=== PATIENT | female | born 1990 | race Caucasian/White ===

== ENCOUNTER 2023-08-15 12:58 | Outpatient (AMB) | payer OTHER, SELFPAY ==
--- NOTE | 2023-08-15 13:14 | MHC.PC.OV ---
Vital Signs 08/15/23 13:20 Height 5 ft 0.83 in Weight 155 lb BMI 29.4 BP 108/76 Blood Pressure Location Rt brachial Position Sitting Respiration 14 Pulse 85 Pulse Source Palpation Temp 98.5 F Temp Source Oral Pulse Oximetry (%) 99 Oxygen Delivery Method Room Air Intake Visit Reasons: [employer] Annual PE Req. Intake Note: New patient visit Is last menstrual period known: No Allergies No Known Allergies Allergy (Verified 08/15/23 13:15) Medication List - Last Reconciled 08/15/23 by Brenda Garcia MD atomoxetine 100 mg PO QAM dextroamphetamine-amphetamine 10 mg 1 tab PO BID dextroamphetamine-amphetamine 20 mg ER caps PO lorazepam mg PO ondansetron mg PO sumatriptan succinate take 1 tab at onset of headache; if no relief may repeat 1 tab after at least 2 hrs; max = 4 tabs/24 hr PO tirzepatide (Mounjaro) 7.5 mg subcut QWEEK topiramate (Topamax) 25 mg PO DAILY 30 days venlafaxine ER 225 mg PO DAILY Tobacco use date assessed: 08/15/23 Dental Screening Dental Screen Date: 08/15/23 Did you have a dental visit in the last 12 months?: No Did you have a dental problem in the last 6 months where you did not have access to dental care?: No Was dental information given to patient?: No (Patient will find one on her own) HPI HPI Comments History of Present Illness Details The patient is a 32 year old female with a past medical history of headaches, anxiety, depression, ADD presenting for follow up Headaches: Did not start the med. Still consisdering BH: On atomoxetine, adderall, effexor Continues GLP for weight loss PFSH Medical History (Updated 08/20/23 @ 11:37 by Brenda Garcia MD) Migraines Surgical History (Updated 08/15/23 @ 13:50 by Nishi Peraza CMA) Hx of appendectomy Family History (Updated 08/15/23 @ 13:52 by Nishi Peraza CMA) Paternal Grandmother HTN (hypertension) Hypercholesterinemic xanthomatosis Diabetes Father HTN (hypertension) Hypercholesterinemic xanthomatosis Diabetes Paternal Grandfather Diabetes Mother Thyroid disorder Maternal Grandmother Breast cancer Social History (Updated 08/15/23 @ 13:17 by DARSHANA Gutiérrez Housing: House Patient Tobacco Use Status: Never used Tobacco e-Cigarette/Vaping Use: Never Used Second Hand Smoke Exposure: No Use of substances other than those prescribed or required for medical reasons: No service: Yes Current occupational status: employed Current occupation: pharmacist Current occupational exposures/hazards: No Cognitive needs: No Hearing needs: No Vision needs: No Questionnaire PHQ-9 Over the last 2 weeks, how often have you been bothered by any of the following problems? 1. Little interest or pleasure in doing things: not at all 2. Feeling down, depressed, or hopeless: not at all 3. Trouble falling or staying asleep, or sleeping too much: more than half the days 4. Feeling tired or having little energy: more than half the days 5. Poor appetite or overeating: several days 6. Feeling bad about yourself - or that you are a failure or have let yourself or your family down: not at all 7. Trouble concentrating on things, such as reading the newspaper or watching television: not at all 8. Moving or speaking so slowly that other people could have noticed. Or the opposite - being so fidgety or restless that you have been moving around a lot more than usual: not at all 9. Thoughts that you would be better off or of hurting yourself in some way: not at all Total score: 5 Depression Screening Interpretation: Positive Depression Screening Follow-up: Existing condition Depression Screening Done: Yes 15269 - PHQ-9 Billing: Yes Source: Developed by Drs. Demarco Penaloza, Maria Teresa Rodriguez, Navid Araujo and colleagues, with an educational duyen from [employer]. Thrive Questionnaire Date Thrive assessed: 08/15/23 I am a: Patient What is your living situation today?: I have a steady place to live Within the past 12 months, did the food you bought not last and you didn't have the money to get more?: Never true Within the past 12 months, did you worry whether your food would run out before you got money to buy more?: Never true Do you have trouble paying for medicines?: No Do you have trouble getting transportation to medical appointments?: No Do you have trouble paying your heating and electricity bill?: No Do you have trouble taking care of your child, family member or friend?: No Do you have trouble with day-to-day activities such as bathing, preparing meals, shopping, managing finances, etc.?: No Are you currently unemployed and looking for a job?: No Are you interested in more education?: No Please select the resources that you would like help with: None Currently or been in a relationship where the following occur: no concerns reported THRIVE Score: 0 AUDIT C Alcohol Use Questionnaire (AUDIT-C) 1. How often do you have a drink containing alcohol?: Never 3. How often do you have six or more drinks on one occasion?: Never Total Score: 0 CATALINA-7 AMB Questionnaire CATALINA-7 Date CATALINA - 7 assessed: 08/15/23 Feeling nervous, anxious, or on edge: 1 = Several days Not being able to stop or control worryin = Several days Worrying too much about different things: 1 = Several days Trouble relaxin = Several days Being so restless that it is hard to sit still: 1 = Several days Becoming easily annoyed or irritable: 0 = Not at all Feeling afraid as if something awful might happen: 0 = Not at all Total CATALINA-7 score (0-4 normal; 5-9 mild; 10-14 moderate; 15-21 severe): 5 Source: Developed by Drs. Demarco Penaloza, Maria Teresa Rodriguez, Navid Araujo and colleagues, with an educational duyen from [employer]. CATALINA-7 Assessment Billing CATALINA-7 Assessment Tool: CATALINA-7 Assessment 53761 Review of Systems Const Details: see HPI Physical exam (Primary Care) Vital Signs: Last Vital Signs Temp 98.5 F 08/15/23 13:20 Pulse 85 08/15/23 13:20 Resp 14 08/15/23 13:20 BP 108/76 08/15/23 13:20 Pulse Ox 99 08/15/23 13:20 Oxygen Delivery Method Room Air 08/15/23 13:20 PHYSICAL EXAM: GENERAL: Alert and oriented x 3. NAD EYES: EOMI. Anicteric. HENT: Moist mucous membranes. No scleral icterus. No cervical lymphadenopathy. LUNGS: Clear to auscultation bilaterally. CARDIOVASCULAR: Regular rate and rhythm. No murmur. No JVD. ABDOMEN: Soft, non-tender +bs EXTREMITIES: No edema. Non-tender. SKIN: No rashes or lesions. Warm. NEUROLOGIC: No focal neurological deficits. CN II-XII grossly intact PSYCHIATRIC: Cooperative. Appropriate mood and affect BMI result Body Mass Index 29.4 Tobacco/Smoking Status: Tobacco use Status Tobacco use date assessed 08/15/23 08/15/23 13:22 Patient Tobacco Use Status Never used Tobacco 08/15/23 13:22 e-Cigarette/Vaping Use Never Used 08/15/23 13:22 PHQ-9: PHQ-9 Score PHQ-9: Total score 5 08/15/23 13:48 Depression Screening Interpretation: Positive Depression Screening Follow-up: Existing condition Thrive Assessment: Date of Thrive Assessment Date Thrive assessed 08/15/23 08/15/23 13:48 Currently or been in a relationship where the following occur: no concerns reported Const Other: ROS CONSTITUTIONAL: Denies weight loss, fever and chills. HEENT: Denies changes in vision and hearing. RESPIRATORY: Denies SOB and cough. CV: Denies palpitations and CP GI: Denies abdominal pain, nausea, vomiting and diarrhea. : Denies dysuria and urinary frequency. MSK: Denies new myalgia and joint pain. SKIN: Denies rash and pruritus. NEUROLOGICAL: Denies headache PSYCHIATRIC: Denies recent changes in mood. Assessment and Plan Assessment & Plan (1) ADD (attention deficit disorder): Comment: stable on medications. psych provider Code(s): F98.8 - Other specified behavioral and emotional disorders with onset usually occurring in childhood and adolescence Qualifiers: Hyperactivity presence: absent Qualified Code(s): F98.8 - Other specified behavioral and emotional disorders with onset usually occurring in childhood and adolescence (2) Anxiety: Code(s): F41.9 - Anxiety disorder, unspecified (3) Depression: Code(s): F32.A - Depression, unspecified Qualifiers: Active/Remission status: in remission of unspecified degree Depression Type: major depressive disorder Major depression recurrence: recurrent Qualified Code(s): F33.40 - Major depressive disorder, recurrent, in remission, unspecified (4) Screening, deficiency anemia, iron: Comment: labs ordered Code(s): Z13.0 - Encounter for screening for diseases of the blood and blood-forming organs and certain disorders involving the immune mechanism (5) Impaired fasting glucose: Code(s): R73.01 - Impaired fasting glucose (6) Screening for hyperlipidemia: Code(s): Z13.220 - Encounter for screening for lipoid disorders Orders: Orders Complete Blood Count Auto Diff 08/15/23 F33.40 - Major depressive disorder, recurrent, in remission, unspecified, F41.9 - Anxiety disorder, unspecified, F98.8 - Other specified behavioral and emotional disorders with onset usually occurring in childhood and adolescence, R73.01 - Impaired fasting glucose, Z13.0 - Encounter for screening for diseases of the blood and blood-forming organs and certain disorders involving the immune mechanism, Z13.220 - Encounter for screening for lipoid disorders Comprehensive Met. Panel 08/15/23 F33.40 - Major depressive disorder, recurrent, in remission, unspecified, F41.9 - Anxiety disorder, unspecified, F98.8 - Other specified behavioral and emotional disorders with onset usually occurring in childhood and adolescence, R73.01 - Impaired fasting glucose, Z13.0 - Encounter for screening for diseases of the blood and blood-forming organs and certain disorders involving the immune mechanism, Z13.220 - Encounter for screening for lipoid disorders Hemoglobin A1c 08/15/23 F33.40 - Major depressive disorder, recurrent, in remission, unspecified, F41.9 - Anxiety disorder, unspecified, F98.8 - Other specified behavioral and emotional disorders with onset usually occurring in childhood and adolescence, R73.01 - Impaired fasting glucose, Z13.0 - Encounter for screening for diseases of the blood and blood-forming organs and certain disorders involving the immune mechanism, Z13.220 - Encounter for screening for lipoid disorders Lipid Panel 08/15/23 F33.40 - Major depressive disorder, recurrent, in remission, unspecified, F41.9 - Anxiety disorder, unspecified, F98.8 - Other specified behavioral and emotional disorders with onset usually occurring in childhood and adolescence, R73.01 - Impaired fasting glucose, Z13.0 - Encounter for screening for diseases of the blood and blood-forming organs and certain disorders involving the immune mechanism, Z13.220 - Encounter for screening for lipoid disorders TSH reflex Free T4 08/15/23 F33.40 - Major depressive disorder, recurrent, in remission, unspecified, F41.9 - Anxiety disorder, unspecified, F98.8 - Other specified behavioral and emotional disorders with onset usually occurring in childhood and adolescence, R73.01 - Impaired fasting glucose, Z13.0 - Encounter for screening for diseases of the blood and blood-forming organs and certain disorders involving the immune mechanism, Z13.220 - Encounter for screening for lipoid disorders Medications: New sumatriptan succinate take 1 tab at onset of headache; if no relief may repeat 1 tab after at least 2 hrs; max = 4 tabs/24 hr PO 18 tabs 3RF topiramate (Topamax) 25 mg PO DAILY 30 tabs 0RF 30 days Coding Level of Care Code Tele Est Pt Level 4 (97798) Complex EM visit Add On G2211 Diagnoses Attention deficit disorder (ADD) without hyperactivity F98.8 Hyperactivity presence: absent Anxiety F41.9 Recurrent major depressive disorder, in remission F33.40 Active/Remission status: in remission of unspecified degree Depression Type: major depressive disorder Major depression recurrence: recurrent Screening, deficiency anemia, iron Z13.0 Impaired fasting glucose R73.01 Screening for hyperlipidemia Z13.220 Additional Codes CATALINA-7 Assessment Billing - CATALINA-7 Assessment Tool: CATALINA-7 Assessment 52544 ([id number])
[2023-08-15 13:20] VITALS: BP 108/76; PULSE 85; RESP 14; TEMP 36.9; O2SAT 99; BMI 29.4
== END 2023-08-15 13:52 | disposition home or self-care (01) ==
PROVIDERS: PCP Internal Medicine; Visit Provider Internal Medicine
DX: R73.01 Impaired fasting glucose (principal); F98.8 Other specified behavioral and emotional disorders with onset usually occurring in childhood and adolescence; F41.9 Anxiety disorder, unspecified; F33.40 Major depressive disorder, recurrent, in remission, unspecified; Z13.0 Encounter for screening for diseases of the blood and blood-forming organs and certain disorders involving the immune mechanism; Z13.220 Encounter for screening for lipoid disorders
CPT/HCPCS: 99214; G2211

== ENCOUNTER 2023-09-08 08:02 | Outpatient (REF) | payer OTHER, SELFPAY ==
[2023-09-08 11:23] LABS: MANUAL DIFF FLAG NO
[2023-09-08 11:31] LABS: Basophils Percent Auto 0.6 % (0-2); Eosinophils Absolute Auto 0.1 X10*3/uL (0.0-0.4); Eosinophils Percent Auto 2.2 % (0-4); Hematocrit 41.9 % (37.0-47.0); Hemoglobin 13.2 g/dl (12.0-16.0); Imm Gran Abs Auto 0.01 X10*3/uL (0.00-0.03); Imm Gran Pct Auto 0.2 % (0.0-0.4); Lymphocytes Absolute Auto 2.4 X10*3/uL (1.2-4.9); Lymphocytes Percent Auto 44.5 % (20-40); Mean Corpuscular HGB Conc 31.5 g/dl (31.0-35.0); Mean Corpuscular Hemoglobin 27.3 pg (27.0-33.0); Mean Corpuscular Volume 86.7 fL (80.0-98.0); Mean Platelet Volume 10.5 fL (9.4-12.3); Monocytes Absolute Auto 0.4 X10*3/uL (0.1-1.2); Monocytes Percent Auto 7.1 % (2-11); Neutrophils Absolute Auto 2.4 x10*3/uL (2.0-8.3); Neutrophils Percent Auto 45.4 % (45-73); Platelet Count 302 X10*3/uL (160-400); Red Blood Count 4.83 X10*6/uL (4.20-5.50); Red Cell Distribution Width 13.1 % (11.0-16.0); White Blood Count 5.4 X10*3/uL (4.8-10.8)
[2023-09-08 11:53] LABS: Alanine Aminotransferase 220 U/L (0-31); Albumin Level 4.3 g/dL (3.5-5.0); Alkaline Phosphatase 155 U/L (39-117); Anion Gap 12 (12-20); Aspartate Amino Transferase 110 U/L (5-31); Bilirubin Total 0.2 mg/dL (0.0-1.0); Blood Urea Nitrogen 8 mg/dL (9-16); Calcium 9.1 mg/dL (8.4-10.2); Carbon Dioxide 27 mmol/L (22-29); Chloride 109 mmol/L (96-108); Cholesterol 211 mg/dL (<200); Estimated Glomerular Filt Rate > 60; Glucose Random 86 mg/dL (60-115); HDL Cholesterol 73 mg/dL (>40); LDL Cholesterol Calculated 121 mg/dL (<100); Potassium 4.1 mmol/L (3.3-5.1); Sodium 144 mmol/L (135-145); Total Protein 7.2 g/dL (6.5-8.0); Triglycerides 86 mg/dL (<150)
[2023-09-08 12:04] LABS: Estimated Average Glucose 97 mg/dL
[2023-09-08 12:10] LABS: TSH reflex Free T4 1.17 uIU/mL (0.32-4.0)
== END 2023-09-08 08:03 | disposition home or self-care (01) ==
LOC: HO.WFDLDS 08:02
PROVIDERS: Visit Provider Internal Medicine
DX: F33.40 Major depressive disorder, recurrent, in remission, unspecified (principal); F41.9 Anxiety disorder, unspecified; F98.8 Other specified behavioral and emotional disorders with onset usually occurring in childhood and adolescence; Z13.0 Encounter for screening for diseases of the blood and blood-forming organs and certain disorders involving the immune mechanism; R73.01 Impaired fasting glucose; Z13.220 Encounter for screening for lipoid disorders
CPT/HCPCS: 36415; 80053; 80061; 83036; 84443; 85025

== ENCOUNTER 2023-09-08 08:58 | Outpatient (REF) | payer OTHER, SELFPAY ==
--- NOTE | ~2023-09-08 | XR_ITS ---
EXAMINATION: XR CERVICAL SPINE, LUMBAR SPINE CLINICAL INFORMATION: Pain in neck as well as lower back. Patient states pain in lower back is from a childhood injury. COMPARISON: None available. TECHNIQUE: 3 views of the cervical spine. 3 views of the lumbar spine. FINDINGS: Cervical Spine: Minimal spondylosis in the lower cervical spine. Cervical disc space heights and alignment preserved. 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 IUD in the pelvis. Lumbar vertebral body heights are preserved. Minimal degenerative changes in the lumbar spine. Lumbar disc space heights maintained. XR/XR lumbar spine 2-3V IMPRESSION: 1. Minimal spondylosis in the lower cervical spine. 2. Facet arthritis in the lower lumbar spine.
--- NOTE | ~2023-09-08 | XR_ITS ---
EXAMINATION: XR CERVICAL SPINE, LUMBAR SPINE CLINICAL INFORMATION: Pain in neck as well as lower back. Patient states pain in lower back is from a childhood injury. COMPARISON: None available. TECHNIQUE: 3 views of the cervical spine. 3 views of the lumbar spine. FINDINGS: Cervical Spine: Minimal spondylosis in the lower cervical spine. Cervical disc space heights and alignment preserved. 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 IUD in the pelvis. Lumbar vertebral body heights are preserved. Minimal degenerative changes in the lumbar spine. Lumbar disc space heights maintained. XR/XR cervical spine 2V IMPRESSION: 1. Minimal spondylosis in the lower cervical spine. 2. Facet arthritis in the lower lumbar spine.
== END 2023-09-08 08:59 | disposition home or self-care (01) ==
LOC: HO.XRAY 08:58
PROVIDERS: PCP Internal Medicine; Visit Provider Internal Medicine
DX: M54.2 Cervicalgia (principal); M54.50 Low back pain, unspecified
CPT/HCPCS: 72040; 72100

== ENCOUNTER 2023-09-29 09:21 | Outpatient (REF) | payer OTHER, SELFPAY ==
--- NOTE | ~2023-09-29 | US_ITS ---
EXAMINATION: US ABDOMEN LIMITED CLINICAL INFORMATION: Other specified abnormal findings of blood chemistry. COMPARISON: None available. TECHNIQUE: Real-time imaging of the right upper quadrant abdominal viscera. FINDINGS: PANCREAS: Normal. LIVER: The liver is normal in size. The liver contour is normal. Mildly increased hepatic echogenicity which can be seen in the setting of hepatic steatosis or underlying liver disease. No focal hepatic lesion. There is no intrahepatic biliary duct dilatation seen. GALLBLADDER: Normal. The gallbladder is physiologically distended without evidence of stones, sludge, polyps, wall thickening or pericholecystic fluid. COMMON BILE DUCT: Normal in caliber measuring 0.3 cm in diameter. RIGHT KIDNEY: Normal. No hydronephrosis. No renal calculi or focal parenchymal lesions. The kidney measures 10.7 cm in maximum dimension. FREE FLUID: None. US/US abdomen limited IMPRESSION: Mildly increased hepatic echogenicity which can be seen in the setting of hepatic steatosis or underlying liver disease.
== END 2023-09-29 09:22 | disposition home or self-care (01) ==
LOC: HO.HMGCX 09:21
PROVIDERS: PCP Internal Medicine; Visit Provider Internal Medicine
DX: R79.89 Other specified abnormal findings of blood chemistry (principal)
CPT/HCPCS: 76705

== ENCOUNTER 2023-11-25 14:34 | Outpatient (REF) | payer OTHER, SELFPAY ==
--- NOTE | ~2023-11-25 | MR_ITS ---
EXAMINATION: MR LUMBAR SPINE WITHOUT CONTRAST CLINICAL INFORMATION: Low back pain COMPARISON: Lumbar radiographs 09/08/2023 TECHNIQUE: MRI of the lumbar spine was obtained using routine sequences without the administration of intravenous contrast. FINDINGS: This examination assumes the presence of 5 lumbar type vertebral bodies. For the purposes of this examination, the L5-S1 intervertebral disc space is visualized on axial series 9 image 28. There are likely hypoplastic T12 ribs. The normal lumbar lordosis is preserved. No significant spondylolisthesis. Lumbar vertebral body heights are maintained. Mildly diminished T1 marrow signal may be related to underlying anemia or red marrow. The conus medullaris and cauda equina nerve roots are unremarkable; the conus terminates at the level of L1. L1-L2: Mild facet arthropathy. The spinal canal and neural foramen are patent. L2-L3: Mild facet arthropathy. The spinal canal and neural foramen are patent. L3-L4: Central disc protrusion indents the ventral thecal sac and narrows the right lateral recess. The central canal is otherwise patent. Mild facet degeneration. The neural foramen are not significantly narrowed. L4-L5: Disc bulge with central annular fissure. Narrowing of the lateral recesses. The central canal is otherwise patent. Facet arthropathy. The neural foramen are not significant narrowed. L5-S1: Facet arthropathy. The spinal canal and neural foramen are patent. Partially visualized small volume pelvic free fluid. 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 Numbering system for this examination as described above. Mild degenerative changes of the lumbar spine as described above. No high-grade spinal canal or neural foraminal stenosis. Electronically signed by: Phu Barrios MD 12/09/2023 01:15 AM EDT
--- NOTE | ~2023-11-25 | MR_ITS ---
EXAMINATION: MR CERVICAL SPINE WITHOUT CONTRAST CLINICAL INFORMATION: Cervicalgia, cervical migraines COMPARISON: Cervical radiographs 09/08/2023 TECHNIQUE: MRI of the cervical spine was obtained using routine sequences without contrast. FINDINGS: Straightening of the normal cervical lordosis. No significant spondylolisthesis. Cervical vertebral body heights are maintained. No expansile or destructive osseous lesion. The cervical spinal cord is normal in signal. C2-C3: No significant spinal canal or neural foraminal stenosis. C3-C4: No significant spinal canal or neural foraminal stenosis. C4-C5: Asymmetric left-sided facet arthropathy with mild narrowing of the left neural foramen. The spinal canal and right neural foramen are patent. C5-C6: No significant spinal canal or neural foraminal stenosis. C6-C7: No significant spinal canal or neural foraminal stenosis. C7-T1: No significant spinal canal or neural foraminal stenosis. Partially visualized trace right mastoid fluid. MR/MR cervical spine wo con IMPRESSION: Mild left neural foraminal stenosis at C4-C5. Otherwise, no significant spinal canal or neural foraminal stenosis in the cervical spine. Electronically signed by: Phu Barrios MD 12/09/2023 01:04 AM EDT
== END 2023-11-25 14:35 | disposition home or self-care (01) ==
LOC: HO.MRI 14:34
PROVIDERS: PCP Internal Medicine; Visit Provider Internal Medicine
DX: M54.2 Cervicalgia (principal); R51.9 Headache, unspecified; M54.50 Low back pain, unspecified
CPT/HCPCS: 72141; 72148

== ENCOUNTER 2024-01-09 11:20 | Outpatient (AMB) | payer OTHER, SELFPAY ==
--- NOTE | 2024-01-09 11:38 | MHC.PC.OV ---
Vital Signs 01/09/24 11:40 Height 5 ft 0.83 in Weight 157 lb 4 oz BMI 29.9 BP 92/64 Blood Pressure Location Rt brachial Position Sitting Pulse 86 Pulse Source Pulse Oximeter Pulse Oximetry (%) 99 Oxygen Delivery Method Room Air Intake Visit Reasons: knee pain Intake Note: Bilateral knee pain. Wants to discuss MRI results. 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 Stands a lot but also hurting sitting and laying down. worse over the past few months. also with ongoing neck and low back pain. MRI with mild arthritic changes of low back and neck. She feels creaking. No h/o trauma. Headaches: Taking sumatriptan as needed. BH: On atomoxetine, adderall, effexor ROS see HPI PHYSICAL EXAM: GENERAL: Alert and oriented x 3. NAD EYES: EOMI. Anicteric. HENT: Moist mucous membranes. No scleral icterus. No cervical lymphadenopathy. LUNGS: Clear to auscultation bilaterally. CARDIOVASCULAR: Regular rate and rhythm. No murmur. No JVD. ABDOMEN: Soft, non-tender +bs EXTREMITIES: No edema. Non-tender. MSK: Normal appearance bilateral knees, mild crepitus SKIN: No rashes or lesions. Warm. NEUROLOGIC: No focal neurological deficits. CN II-XII grossly intact PSYCHIATRIC: Cooperative. Appropriate mood and affect [facility] Medical History Migraines Surgical History Hx of appendectomy Family History Paternal Grandmother HTN (hypertension) Hypercholesterinemic xanthomatosis Diabetes Father HTN (hypertension) Hypercholesterinemic xanthomatosis Diabetes Paternal Grandfather Diabetes Mother Thyroid disorder Maternal Grandmother Breast cancer Social History Housing: House Patient Tobacco Use Status: Never used Tobacco e-Cigarette/Vaping Use: Never Used Second Hand Smoke Exposure: No service: Yes Current occupational status: employed Current occupation: pharmacist Current occupational exposures/hazards: No Cognitive needs: No Hearing needs: No Vision needs: No Questionnaire PHQ-9 Over the last 2 weeks, how often have you been bothered by any of the following problems? 1. Little interest or pleasure in doing things: not at all 2. Feeling down, depressed, or hopeless: not at all 3. Trouble falling or staying asleep, or sleeping too much: not at all 4. Feeling tired or having little energy: not at all 5. Poor appetite or overeating: not at all 6. Feeling bad about yourself - or that you are a failure or have let yourself or your family down: not at all 7. Trouble concentrating on things, such as reading the newspaper or watching television: not at all 8. Moving or speaking so slowly that other people could have noticed. Or the opposite - being so fidgety or restless that you have been moving around a lot more than usual: not at all 9. Thoughts that you would be better off or of hurting yourself in some way: not at all Total score: 0 Source: Developed by Drs. Demarco Penaloza, Maria Teresa Rodriguez, Navid Araujo and colleagues, with an educational duyen from [employer]. Thrive Questionnaire Date Thrive assessed: 01/06/24 I am a: Patient What is your living situation today?: I have a steady place to live Within the past 12 months, did the food you bought not last and you didn't have the money to get more?: Never true Within the past 12 months, did you worry whether your food would run out before you got money to buy more?: Never true Do you have trouble paying for medicines?: No Do you have trouble getting transportation to medical appointments?: No Do you have trouble paying your heating and electricity bill?: No Do you have trouble taking care of your child, family member or friend?: No Do you have trouble with day-to-day activities such as bathing, preparing meals, shopping, managing finances, etc.?: No Are you currently unemployed and looking for a job?: No Are you interested in more education?: No Please select the resources that you would like help with: None Currently or been in a relationship where the following occur: No concerns reported THRIVE Score: 0 AUDIT C Alcohol Use Questionnaire (AUDIT-C) 1. How often do you have a drink containing alcohol?: Never 3. How often do you have six or more drinks on one occasion?: Never Total Score: 0 CATALINA-7 AMB Questionnaire CATALINA-7 Date CATALINA - 7 assessed: 08/15/23 Feeling nervous, anxious, or on edge: 0 = Not at all Not being able to stop or control worryin = Not at all Worrying too much about different things: 0 = Not at all Trouble relaxin = Several days Being so restless that it is hard to sit still: 1 = Several days Becoming easily annoyed or irritable: 1 = Several days Feeling afraid as if something awful might happen: 1 = Several days Total CATALINA-7 score (0-4 normal; 5-9 mild; 10-14 moderate; 15-21 severe): 4 Source: Developed by Drs. Demarco Penaloza, Maria Teresa Rodriguez, Navid Araujo and colleagues, with an educational duyen from [employer]. Physical exam (Primary Care) Vital Signs: Last Vital Signs Pulse 86 01/09/24 11:40 BP 92/64 01/09/24 11:40 Pulse Ox 99 01/09/24 11:40 Oxygen Delivery Method Room Air 01/09/24 11:40 BMI result Body Mass Index 29.9 Tobacco/Smoking Status: Tobacco use Status Tobacco use date assessed 08/15/23 01/09/24 11:38 Patient Tobacco Use Status Never used Tobacco 01/09/24 11:38 e-Cigarette/Vaping Use Never Used 01/09/24 11:38 PHQ-9: PHQ-9 Score PHQ-9: Total score 0 01/09/24 11:38 Thrive Assessment: Date of Thrive Assessment Date Thrive assessed 01/06/24 01/09/24 11:38 Currently or been in a relationship where the following occur: No concerns reported Coding Level of Care Code Est Pt Level 4 (03936) Diagnoses Myalgia M79.10 Chronic pain of right knee M25.561; G89.29 Chronicity: chronic Chronic pain of left knee M25.562; G89.29 Chronicity: chronic Assessment & Plan Assessment & Plan (1) Myalgia: Code(s): M79.10 - Myalgia, unspecified site Category: Medical Plan: check xrays labs. Discussed likely fibromyalgia. (2) Right knee pain: Code(s): M25.561 - Pain in right knee Category: Medical Qualifiers: Chronicity: chronic Qualified Code(s): M25.561 - Pain in right knee; G89.29 - Other chronic pain Plan: xray ordered recommend voltaren (3) Left knee pain: Code(s): M25.562 - Pain in left knee Category: Medical Qualifiers: Chronicity: chronic Qualified Code(s): M25.562 - Pain in left knee; G89.29 - Other chronic pain Plan: xray ordered recommend voltaren Orders: Orders XR knee RT 3V Today M25.561 - Pain in right knee, M25.562 - Pain in left knee, M79.10 - Myalgia, unspecified site Lyme IgG/IgM w/reflex to WB Today M25.561 - Pain in right knee, M25.562 - Pain in left knee, M79.10 - Myalgia, unspecified site XR knee LT 3V Today M25.561 - Pain in right knee, M25.562 - Pain in left knee, M79.10 - Myalgia, unspecified site Erythrocyte Sedimentation Rate Today M25.561 - Pain in right knee, M25.562 - Pain in left knee, M79.10 - Myalgia, unspecified site Rheumatoid Factor Today M25.561 - Pain in right knee, M25.562 - Pain in left knee, M79.10 - Myalgia, unspecified site Referrals Genetics Referral Z80.3 - Family history of malignant neoplasm of breast
[2024-01-09 11:40] VITALS: BP 92/64; PULSE 86; O2SAT 99; BMI 29.9
== END 2024-01-09 12:09 | disposition home or self-care (01) ==
PROVIDERS: PCP Internal Medicine; Visit Provider Internal Medicine
DX: M79.10 Myalgia, unspecified site (principal); M25.561 Pain in right knee; G89.29 Other chronic pain; M25.562 Pain in left knee

== ENCOUNTER → 2024-01-09 11:20 | Outpatient (BNVA) | payer OTHER, SELFPAY | PROVIDERS: PCP Internal Medicine; Visit Provider Internal Medicine ==

== ENCOUNTER 2024-01-09 12:24 | Outpatient (REF) | payer OTHER, SELFPAY ==
[2024-01-09 14:47] LABS: Rheumatoid Factor < 13.0 IU/mL (<15.0)
[2024-01-09 14:56] LABS: Erythrocyte Sedimentation Rate 7 MM/HR (0-20)
[2024-01-10 08:59] LABS: Lyme Abs Screen <0.90 index
== END 2024-01-09 12:25 | disposition home or self-care (01) ==
LOC: HO.WFDLDS 12:24
PROVIDERS: Visit Provider Internal Medicine
DX: M25.562 Pain in left knee (principal); M25.561 Pain in right knee; M79.10 Myalgia, unspecified site
CPT/HCPCS: 36415; 85652; 86431; 86617; 86618

== ENCOUNTER 2024-05-21 09:13 | Outpatient (AMB) | payer OTHER, SELFPAY ==
--- NOTE | 2024-05-21 09:18 | A.OFFPC_ITS ---
Vital Signs 05/21/24 09:22 Height 5 ft 0.83 in Weight 163 lb 2 oz BMI 31.0 BP 98/68 Blood Pressure Location Lt brachial Position Sitting Respiration 12 Pulse 68 Pulse Source Pulse Oximeter Temp 96.9 F Temp Source Oral Pulse Oximetry (%) 99 Oxygen Delivery Method Room Air Intake Visit Reasons: On-going bronchitis, wants to discuss getting labs Intake Note: Patient just want a check up because she has been getting sick alot lately. 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 Sinus congestion, cough. 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 she took one round of augmentin without significant improvement. She thinks her immune system is weakened. Reports daily bilateral knee pain. Stands a lot but also hurting sitting and laying down. worse over the past few months. also with ongoing neck and low back pain. MRI with mild arthritic changes of low back and neck. She feels creaking. No h/o trauma. Headaches: Taking sumatriptan as needed. BH: On atomoxetine, adderall, effexor ROS see HPI PHYSICAL EXAM: GENERAL: Alert and oriented x 3. NAD EYES: EOMI. Anicteric. HENT: Moist mucous membranes. No scleral icterus. No cervical lymphadenopathy.Clear scant middle ear effusions. Boggy nasal mucosa. LUNGS: Clear to auscultation bilaterally. CARDIOVASCULAR: Regular rate and rhythm. No murmur. No JVD. ABDOMEN: Soft, non-tender +bs EXTREMITIES: No edema. Non-tender. MSK: Normal appearance bilateral knees, mild crepitus SKIN: No rashes or lesions. Warm. NEUROLOGIC: No focal neurological deficits. CN II-XII grossly intact PSYCHIATRIC: Cooperative. Appropriate mood and affect PFSH Medical History Migraines Surgical History Hx of appendectomy Family History Paternal Grandmother HTN (hypertension) Hypercholesterinemic xanthomatosis Diabetes Father HTN (hypertension) Hypercholesterinemic xanthomatosis Diabetes Paternal Grandfather Diabetes Mother Thyroid disorder Maternal Grandmother Breast cancer Social History Housing: House Patient Tobacco Use Status: Never used Tobacco e-Cigarette/Vaping Use: Never Used Second Hand Smoke Exposure: No service: Yes Current occupational status: employed Current occupation: pharmacist Current occupational exposures/hazards: No Cognitive needs: No Hearing needs: No Vision needs: No Questionnaire PHQ-9 Over the last 2 weeks, how often have you been bothered by any of the following problems? 1. Little interest or pleasure in doing things: not at all 2. Feeling down, depressed, or hopeless: not at all 3. Trouble falling or staying asleep, or sleeping too much: several days 4. Feeling tired or having little energy: several days 5. Poor appetite or overeating: several days 6. Feeling bad about yourself - or that you are a failure or have let yourself or your family down: not at all 7. Trouble concentrating on things, such as reading the newspaper or watching television: several days 8. Moving or speaking so slowly that other people could have noticed. Or the opposite - being so fidgety or restless that you have been moving around a lot more than usual: not at all 9. Thoughts that you would be better off or of hurting yourself in some way: not at all Total score: 4 Depression Screening Interpretation: Negative Depression Screening Done: Yes 18115 - PHQ-9 Billing: Yes Source: Developed by Drs. Demarco Penaloza, Maria Teresa Rodriguez, Navid Araujo and colleagues, with an educational duyen from [employer]. Thrive Questionnaire Date Thrive assessed: 05/21/24 I am a: Patient What is your living situation today?: I have a steady place to live Within the past 12 months, did the food you bought not last and you didn't have the money to get more?: Never true Within the past 12 months, did you worry whether your food would run out before you got money to buy more?: Never true Do you have trouble paying for medicines?: No Do you have trouble getting transportation to medical appointments?: No Do you have trouble paying your heating and electricity bill?: No Do you have trouble taking care of your child, family member or friend?: No Do you have trouble with day-to-day activities such as bathing, preparing meals, shopping, managing finances, etc.?: No Are you currently unemployed and looking for a job?: No Are you interested in more education?: No Please select the resources that you would like help with: None Currently or been in a relationship where the following occur: No concerns reported THRIVE Score: 0 AUDIT C Alcohol Use Questionnaire (AUDIT-C) 1. How often do you have a drink containing alcohol?: Monthly or less 2. How many drinks containing alcohol do you have on a typical day when you are drinking?: 1 or 2 3. How often do you have six or more drinks on one occasion?: Never Total Score: 1 CATALINA-7 AMB Questionnaire CATALINA-7 Date CATALINA - 7 assessed: 05/21/24 Feeling nervous, anxious, or on edge: 0 = Not at all Not being able to stop or control worryin = Several days Worrying too much about different things: 0 = Not at all Trouble relaxin = Several days Being so restless that it is hard to sit still: 0 = Not at all Becoming easily annoyed or irritable: 1 = Several days Feeling afraid as if something awful might happen: 0 = Not at all Total CATALINA-7 score (0-4 normal; 5-9 mild; 10-14 moderate; 15-21 severe): 3 Source: Developed by Drs. Demarco Penaloza, Maria Teresa Rodriguez, Navid Araujo and colleagues, with an educational duyen from [employer]. CATALINA-7 Assessment Billing CATALINA-7 Assessment Tool: CATALINA-7 Assessment 05453 Physical exam (Primary Care) Vital Signs: Last Vital Signs Temp 96.9 F 05/21/24 09:22 Pulse 68 05/21/24 09:22 Resp 12 05/21/24 09:22 BP 98/68 05/21/24 09:22 Pulse Ox 99 05/21/24 09:22 Oxygen Delivery Method Room Air 05/21/24 09:22 BMI result Body Mass Index 31.0 Tobacco/Smoking Status: Tobacco use Status Tobacco use date assessed 05/21/24 05/21/24 09:21 Patient Tobacco Use Status Never used Tobacco 05/21/24 09:21 e-Cigarette/Vaping Use Never Used 05/21/24 09:21 PHQ-9: PHQ-9 Score PHQ-9: Total score 4 05/22/24 14:13 Depression Screening Interpretation: Negative Thrive Assessment: Date of Thrive Assessment Date Thrive assessed 05/21/24 05/21/24 09:21 Currently or been in a relationship where the following occur: No concerns reported Coding Level of Care Code Est Pt Level 4 (03846) Diagnoses Recurrent sinusitis J32.9 Additional Codes CATALINA-7 Assessment Billing - CATALINA-7 Assessment Tool: CATALINA-7 Assessment 61700 ([id number]) PHQ-9 - 14016 - PHQ-9 Billing: Yes ([id number]) Assessment & Plan Assessment & Plan (1) Recurrent sinusitis: Code(s): J32.9 - Chronic sinusitis, unspecified Category: Medical Plan: xr sinus ordered Lab work ordered Levofloxacin sent Orders: Orders Immunoglobulins,IgG IgA IgM 05/21/24 Z86.19 - Personal history of other infectious and parasitic diseases XR sinus min 3V 05/21/24 J32.9 - Chronic sinusitis, unspecified Vitamin B12 and Folate 05/21/24 J32.9 - Chronic sinusitis, unspecified, R79.89 - Other specified abnormal findings of blood chemistry, Z86.19 - Personal history of other infectious and parasitic diseases Vitamin B6 05/21/24 J32.9 - Chronic sinusitis, unspecified, R79.89 - Other specified abnormal findings of blood chemistry, Z86.19 - Personal history of other infectious and parasitic diseases Vitamin D 25-OH (D2 and D3) 05/21/24 J32.9 - Chronic sinusitis, unspecified, R79.89 - Other specified abnormal findings of blood chemistry, Z86.19 - Personal history of other infectious and parasitic diseases Complete Blood Count Auto Diff 05/21/24 J32.9 - Chronic sinusitis, unspecified, R79.89 - Other specified abnormal findings of blood chemistry, Z86.19 - Personal history of other infectious and parasitic diseases IRON PROFILE 05/21/24 J32.9 - Chronic sinusitis, unspecified, R79.89 - Other specified abnormal findings of blood chemistry, Z86.19 - Personal history of other infectious and parasitic diseases Vitamin B1 05/21/24 J32.9 - Chronic sinusitis, unspecified, R79.89 - Other specified abnormal findings of blood chemistry, Z86.19 - Personal history of other infectious and parasitic diseases Comprehensive Met. Panel 05/21/24 J32.9 - Chronic sinusitis, unspecified, R79.89 - Other specified abnormal findings of blood chemistry, Z86.19 - Personal history of other infectious and parasitic diseases Medications: New levofloxacin 750 mg PO DAILY 10 tabs 0RF
[2024-05-21 09:22] VITALS: BP 98/68; PULSE 68; RESP 12; TEMP 36.1; O2SAT 99; BMI 31.0
== END 2024-05-21 09:51 | disposition home or self-care (01) ==
PROVIDERS: PCP Internal Medicine; Visit Provider Internal Medicine
DX: J32.9 Chronic sinusitis, unspecified (principal)

== ENCOUNTER → 2024-05-21 09:13 | Outpatient (BNVA) | payer OTHER, SELFPAY | PROVIDERS: PCP Internal Medicine; Visit Provider Internal Medicine | DX: J32.9 Chronic sinusitis, unspecified (principal); F41.9 Anxiety disorder, unspecified; F32.A Depression, unspecified; F98.8 Other specified behavioral and emotional disorders with onset usually occurring in childhood and adolescence; R51.9 Headache, unspecified; Z79.899 Other long term (current) drug therapy | CPT/HCPCS: 96127 ==

== ENCOUNTER 2024-05-21 10:34 | Outpatient (REF) | payer OTHER, SELFPAY ==
[2024-05-21 14:10] LABS: MANUAL DIFF FLAG NO
[2024-05-21 14:30] LABS: Basophils Absolute Auto 0.1 X10*3/uL (0.0-0.2); Basophils Percent Auto 0.7 % (0-2); Eosinophils Absolute Auto 0.1 X10*3/uL (0.0-0.4); Eosinophils Percent Auto 1.3 % (0-4); Hematocrit 42.5 % (37.0-47.0); Hemoglobin 13.1 g/dl (12.0-16.0); Imm Gran Abs Auto 0.03 X10*3/uL (0.00-0.03); Imm Gran Pct Auto 0.4 % (0.0-0.4); Lymphocytes Absolute Auto 2.3 X10*3/uL (1.2-4.9); Lymphocytes Percent Auto 32.1 % (20-40); Mean Corpuscular HGB Conc 30.8 g/dl (31.0-35.0); Mean Corpuscular Hemoglobin 26.7 pg (27.0-33.0); Mean Corpuscular Volume 86.6 fL (80.0-98.0); Mean Platelet Volume 10.7 fL (9.4-12.3); Monocytes Absolute Auto 0.4 X10*3/uL (0.1-1.2); Monocytes Percent Auto 5.2 % (2-11); Neutrophils Absolute Auto 4.3 x10*3/uL (2.0-8.3); Neutrophils Percent Auto 60.3 % (45-73); Platelet Count 380 X10*3/uL (160-400); Red Blood Count 4.91 X10*6/uL (4.20-5.50); Red Cell Distribution Width 12.3 % (11.0-16.0); White Blood Count 7.1 X10*3/uL (4.8-10.8)
[2024-05-21 15:30] LABS: Vitamin B12 542 pg/mL (200-900)
[2024-05-21 15:43] LABS: Alanine Aminotransferase 39 U/L (0-31); Albumin Level 4.2 g/dL (3.5-5.0); Alkaline Phosphatase 83 U/L (39-117); Anion Gap 10 (12-20); Aspartate Amino Transferase 27 U/L (5-31); Bilirubin Total 0.3 mg/dL (0.0-1.0); Blood Urea Nitrogen 10 mg/dL (9-16); Calcium 9.3 mg/dL (8.4-10.2); Carbon Dioxide 28 mmol/L (22-29); Chloride 107 mmol/L (96-108); Estimated Glomerular Filt Rate > 60; Glucose Random 85 mg/dL (60-115); Iron 64 mcg/dL (30-160); Percent Iron Saturation 23 % (15-50); Potassium 4.3 mmol/L (3.3-5.1); Sodium 141 mmol/L (135-145); Total Iron Binding Capacity 276 mcg/dL (228-428); Total Protein 7.6 g/dL (6.5-8.0); Unsaturated Iron Binding 212 ug/dL
[2024-05-25 11:57] LABS: IgA 277 mg/dL (47-310); IgG 1263 mg/dL (600-1640); IgM 88 mg/dL (50-300)
[2024-05-25 16:13] LABS: Vitamin D 25-OH, D2 <4 ng/mL; Vitamin D 25-OH, D3 29 ng/mL; Vitamin D 25-OH, Total 29 ng/mL (30-100)
[2024-05-26 14:09] LABS: Vitamin B1 13 nmol/L (8-30)
[2024-05-27 06:23] LABS: Vitamin B6 8.7 ng/mL (2.1-21.7)
== END 2024-05-21 10:35 | disposition home or self-care (01) ==
LOC: HO.WFDLDS 10:34
PROVIDERS: Visit Provider Internal Medicine
DX: J32.9 Chronic sinusitis, unspecified (principal); R79.89 Other specified abnormal findings of blood chemistry; Z86.19 Personal history of other infectious and parasitic diseases
CPT/HCPCS: 36415; 80053; 82306; 82607; 82746; 82784; 83540; 84207; 84425; 85025